=== PATIENT | female | born 1990 | race Caucasian/White ===

== ENCOUNTER 2017-03-04 05:33 | Emergency (ER) | payer BC ==
[2017-03-04 06:19] LABS: URINE SOURCE CLEAN CATCH
[2017-03-04 06:29] LABS: URINE APPEARANCE CLEAR; URINE BLOOD NEG (NEG); URINE COLOR DK YELLOW; URINE GLUCOSE NEG (NEG); URINE KETONE NEG (NEG); URINE LEUKOCYTE ESTERASE 1+ (NEG); URINE NITRATE POS (NEG); URINE PH 6.5 (5-8); URINE PROTEIN TRACE (NEG); URINE SPECIFIC GRAVITY 1.025 (1.003-1.035)
[2017-03-04 06:32] LABS: CULTURE INDICATED? YES; URINE BACTERIA AUWI 1+ (NEGATIVE); URINE SQUAMOUS EPITHELIAL CELL OCC /[HPF]; UWBCS1 AUWI 25-50 (0-5)
[2017-03-04 06:41] LABS: URINE BILIRUBIN NEG (NEG)
[2017-03-06 08:06] LABS: CHLAMYDIA TRACH Not Detected (Not Detected); N GONOR Not Detected (Not Detected)
== END 2017-03-04 09:49 | disposition home or self-care (01) ==
LOC: CED 05:33
PROVIDERS: Nurse Practitioner
DX: N30.00 Acute cystitis without hematuria (principal); Z91.040 Latex allergy status
CPT/HCPCS: 81003; 84703; 87086; 87491; 87591; 87808; 87905; 96372; 99284; J1885

== ENCOUNTER 2017-03-04 22:46 | Emergency (ER) | payer BC ==
--- NOTE | ~2017-03-04 | EKG ---
PATIENT: RONNIE WISE UNIT #: [id number] Ventricular Rate: 83 BPM Atrial Rate: 83 BPM P-R Interval: 138 ms QRS Duration: 86 ms Q-T Interval: 362 ms QTC Calculation(Bezet): 425 ms P Trinity: 46 degrees Calculated R Trinity: 13 degrees Calculated T Trinity: 43 degrees Diagnosis Line: Normal sinus rhythm Diagnosis Line: Normal ECG Diagnosis Line: No previous ECGs available Diagnosis Line: Confirmed by SUMMER FOSTER MD ([id number]) on Diagnosis Line: 03/05/2017 10:08:39 PM INTERPRETING MD: MEENU
--- NOTE | ~2017-03-04 | CR72 ---
[facility] A Service of [facility] & [facility] RADIOLOGY TEXT RESULTS PATIENT: RONNIE WISE LOCATION: [facility] : [birth year] UNIT #: [id number] AGE: [address]: Lukasz Garcia SEX: F ORDER DR: [id number] [facility] [address] [place], [place] [address] [id number] E MR#: [id number] Acc #: [id number] NAME: RONNIE WISE : 1990 SEX: F STUDY DATE/TIME: 03/04/2017 23:56 UNIT: [facility] ROOM: STUDY DESCRIPTION: CR Chest Single View Portable Attending Physician: Lukasz Garcia P.A.-C. Ordering Physician: Lukasz Garcia P.A.-C. Primary Care Physician: Primary Care Physician No MEDICAL IMAGING REPORT This report is preliminary unless electronic signature is present EXAM Chest x-ray, 03/04/2017 HISTORY 26-year-old female in the ED complaining of several-month history of chest pain and shortness of air, acutely worsening today. TECHNIQUE AP portable upright chest x-ray. FINDINGS The examination is negative. Heart size and pulmonary vascularity are normal. The lungs are expanded and clear. No visible pulmonary infiltrate, pneumothorax or pleural effusion. IMPRESSION Negative chest. Dictated by... Nicko Ferguson M.D. THIS IS AN ELECTRONICALLY VERIFIED REPORT Nicko Ferguson M.D. at 03/05/2017 6:02 AM Mike TD: 03/05/2017 03:58 JOB #: [id number] MEDICAL IMAGING REPORT Page 1 of 1 COPY
[2017-03-05 00:18] LABS: BASOPHIL% 0.5 % (0-2.5); DIFF IND NO; EOSINOPHIL# 0.2 X10e3 (0-0.7); EOSINOPHIL% 2.1 % (0.0-7.0); HEMATOCRIT 39.1 % (35.0-45.0); HEMOGLOBIN 13.2 gm/dL (12.0-16.0); LYMPHOCYTE# 3.8 X10e3 (1.0-3.5); LYMPHOCYTE% 42.4 % (17.0-45.0); MEAN CELL VOLUME 92.2 FL (83-96); MEAN CORPUSCULAR HEMOGLOBIN 31.1 PG (28-34); MEAN CORPUSCULAR HGB CONC 33.7 g/dL (30-36); MEAN PLATELET VOLUME 7.1 FL (6.5-11.5); MONOCYTE# 0.7 X10e3 (0-1.0); MONOCYTE% 7.9 % (3.0-12.0); NEUTROPHIL# 4.3 X10e3 (1.5-7.1); NEUTROPHIL% 47.1 % (40-75); PLATELET COUNT 303 X10e3 (140-420); RED BLOOD COUNT 4.25 X10e (3.90-5.30); RED CELL DISTRIBUTION WIDTH 12.5 % (11.0-15.5); WHITE BLOOD COUNT 9.1 X10e3 (4.0-10.5)
[2017-03-05 00:22] LABS: POC - CKMB 1.6 ng/mL (0.0-7.9); POC - TROPONIN <0.05 ng/mL (<=0.05)
[2017-03-05 00:41] LABS: ALBUMIN SERUM 4.1 g/dL (3.5-5.0); BILIRUBIN,TOTAL 0.8 mg/dL (0.2-2.0); BUN/CREATININE RATIO 18.75; CALCIUM SERUM 9.3 mg/dL (8.4-10.2); CREATININE SERUM 0.8 mg/dL (0.6-1.4); GLOM FILT RATE Estimated 102.6 mL/min (>60); POTASSIUM 3.5 mmol/L (3.5-5.1); PROTEIN TOTAL SERUM 7.6 g/dL (6.0-8.3)
[2017-03-05 00:42] LABS: BILIRUBIN, DIRECT 0.1 mg/dL (0.0-0.2); BILIRUBIN,INDIRECT 0.7 mg/dL (0.0-0.9)
== END 2017-03-05 01:15 | disposition home or self-care (01) ==
LOC: CED 22:46
PROVIDERS: Physician Assistant
DX: R09.1 Pleurisy (principal); R07.89 Other chest pain; Z91.040 Latex allergy status
CPT/HCPCS: 36415; 71010; 80048; 80076; 82553; 84484; 85025; 85379; 93005; 96374; 99284; J1885

== ENCOUNTER → 2017-03-06 | Outpatient (CLI) | payer BC ==
--- NOTE | ~2017-03-06 | CT2 ---
[facility] A Service of [facility] RADIOLOGY TEXT RESULTS PATIENT: RONNIE WISE [facility] : 91 UNIT #: [id number] AGE: [address]: Maria De Jesus Roberts MD SEX: F ORDER DR: [id number] [place], [place] [address] [id number] O MR#: [id number] Acc #: [id number] NAME: RONNIE WISE : 1990 SEX: F STUDY DATE/TIME: 03/06/2017 17:31 UNIT: [facility] ROOM: STUDY DESCRIPTION: CT Abd and Pelv W Cont Attending Physician: Maria De Jesus Roberts M.D. Referring Physician: Maria De Jesus Roberts M.D. Ordering Physician: Maria De Jesus Roberts M.D. Primary Care Physician: Peg Love M.D. MEDICAL IMAGING REPORT This report is preliminary unless electronic signature is present EXAM CT abdomen and pelvis with contrast INDICATIONS Right lower quadrant abdominal pain and hematuria since Saturday. TECHNIQUE Contrast-enhanced CT of the abdomen and pelvis. This CT exam was performed with one or more of the following radiation dose reduction techniques: automatic exposure control, adjustment of mA and/or kV according to patient size, and iterative reconstruction. FINDINGS Lung bases are clear. ABDOMEN WITH CONTRAST: Liver is borderline enlarged at 19.4 cm. No liver or splenic lesion. Kidneys, adrenal glands pancreas gallbladder unremarkable. Bowel loops are non-dilated appendix is normal. PELVIS WITH CONTRAST: No pelvic mass or fluid. No aggressive appearing bone lesion. IMPRESSION 1. No acute findings. Borderline hepatomegaly. 2. Normal appendix. Dictated by... Dawit Chatterjee M.D. THIS IS AN ELECTRONICALLY VERIFIED REPORT [facility] A Service of [facility] & [facility] RADIOLOGY TEXT RESULTS PATIENT: RONNIE WISE [facility] 91 UNIT #: [id number] AGE: [address]: Maria De Jesus Roberts MD SEX: F ORDER DR: Dawit Chatterjee M.D. at 03/07/2017 2:25 PM EED/pcl TD: 03/06/2017 21:59 JOB #: [id number] MEDICAL IMAGING REPORT Page 1 of 1 COPY
== END | disposition home or self-care (01) ==
LOC: CCAT 15:38
DX: R10.31 Right lower quadrant pain (principal); R10.2 Pelvic and perineal pain; R31.9 Hematuria, unspecified; R10.9 Unspecified abdominal pain
CPT/HCPCS: 74177; Q9967